=== PATIENT | female | born 1990 | race American Indian/Alaskan Native ===

== ENCOUNTER 2017-07-26 00:09 | Emergency (ER) | payer BC ==
[2017-07-26 02:52] VITALS: BP 150/88
[2017-07-26] MEDS ORDERED: XYLOCAINE 2% INFILTRATI ONE (03:23)
[2017-07-26] MEDS ORDERED: TENIVAC IM ONE (03:23)
[2017-07-26] MEDS ORDERED: XYLOCAINE 1% MPF 5 mL INFILTRATI ONE (03:24)
--- NOTE | 2017-07-26 03:27 | Emergency Department Report ---
ED Laceration HPI - HPI Chief Complaint: Wound/Laceration Stated Complaint: CUT TO THE HAND Time Seen by Provider: 07/26/17 02:57 Occurred When: Today Location: Upper Extremity (laceration to extensor surface right middle finger) Severity: moderate Tetanus Status: Unknown Laceration Symptoms: Yes Pain, No Foreign Body Sensation, No Numbness, No Weakness Other History: 27-year-old female presents here with complaints of laceration to right middle finger just prior to arrival. Patient was washing some dishes and sustained a laceration to the extensor surface of her right middle finger. From a broken glass plate. Laceration measured about 4 cm. ED Review of Systems ROS: Stated complaint: CUT TO THE HAND Other details as noted in HPI Comment: All other systems reviewed and negative Constitutional: denies: chills, diaphoresis, fever, malaise Eyes: denies: eye pain, eye discharge, vision change ENT: denies: throat pain, dental pain, hearing loss, epistaxis Respiratory: denies: cough, orthopnea, shortness of breath, SOB with exertion Cardiovascular: denies: chest pain, palpitations, dyspnea on exertion, edema, syncope, paroxysmal nocturnal dyspnea Endocrine: denies: no symptoms reported, excessive sweating, flushing, intolerance to cold, increased hunger, increased thirst, increased urine Gastrointestinal: denies: nausea, vomiting, diarrhea, constipation, hematemesis Genitourinary: denies: dysuria Musculoskeletal: other (laceration right middle finger) Skin: other (4 cm laceration on extensor surface right middle finger) Neurological: denies: headache, weakness, numbness, paresthesias ED Past Medical Hx - Past Medical History Previous Medical History?: No - Surgical History Past Surgical History?: No - Social History Smoking Status: Never Smoker - Medications Home Medications: Home Medications Medication Instructions Recorded Confirmed Last Taken Type Cephalexin [Keflex] 1,000 mg PO BID #40 capsule 07/26/17 Unknown Rx Ibuprofen [Motrin 800 MG tab] 800 mg PO Q8HR PRN #30 tablet 07/26/17 Unknown Rx Mupirocin [Bactroban 2%] 1 applic TP TID #1 tube 07/26/17 Unknown Rx traMADol [Ultram] 50 mg PO Q6HR PRN #20 tablet 07/26/17 Unknown Rx Laceration Physical Exam - Exam General: Vital signs noted. No distress. Alert and acting appropriately. Wound Length (cm): 4 Laceration Location: Other (extensor surface right middle finger) Laceration Exam: Yes Normal Distal CMS, No Foreign Body, No Exposed Tendon, Vessel, or Nerve, No Tendon Injury ED Course Vital Signs 07/26/17 07/26/17 07/26/17 00:28 00:37 02:51 Temperature 98.6 F 98.6 F 98.5 F Pulse Rate 81 84 70 Respiratory 16 16 18 Rate Blood Pressure 148/83 148/83 Blood Pressure 150/88 [Right] O2 Sat by Pulse 97 100 100 Oximetry - Laceration /Wound Repair Right Upper Dorsal Finger Wound Location: upper extremity (right middle finger extensor surface) Wound's Depth, Shape: irregular Wound Explored: no foreign body removed Betadine Prep?: Yes Volume Anesthetic (ccs): 10 (2% plain lidocaine) Wound Debrided: minimal Suture Size/Type: 3:0 Number of Sutures: 9 (Ethilon sutures) Layer Closure?: No Sterile Dressing Applied?: Yes Critical Care Time: No Critical care attestation.: If time is entered above; I have spent that time in minutes in the direct care of this critically ill patient, excluding procedure time. ED Disposition Clinical Impression: Laceration of right middle finger Disposition: DC-01 TO HOME OR SELFCARE Is pt being admited?: No Does the pt Need Aspirin: No Condition: Stable Instructions: Finger Laceration (ED), Suture Care (ED) Additional Instructions: Keep wound clean and dry always apply antibiotic ointment 3 times daily. Follow up with your primary care for wound evaluation. For removal of sutures in 12 days Prescriptions: Cephalexin [Keflex] 1,000 mg PO BID #40 capsule Ibuprofen [Motrin 800 MG tab] 800 mg PO Q8HR PRN #30 tablet PRN Reason: Pain Mupirocin [Bactroban 2%] 1 applic TP TID #1 tube traMADol [Ultram] 50 mg PO Q6HR PRN #20 tablet PRN Reason: Pain Referrals: PRIMARY CARE,MD [Primary Care Provider] - 3-5 Days Time of Disposition: 04:50
[2017-07-26] MEDS ORDERED: TRIPLE ANTIBIOTIC TP ONE (04:08)
[2017-07-26] MEDS ORDERED: ANCEF IM ONE (04:08)
== END 2017-07-26 05:10 | disposition home or self-care (01) ==
LOC: ED 00:09
DX: S61.212A Laceration without foreign body of right middle finger without damage to nail, initial encounter (principal); W26.8XXA Contact with other sharp object(s), not elsewhere classified, initial encounter; Y93.G1 Activity, food preparation and clean up; Y92.89 Other specified places as the place of occurrence of the external cause; Y99.8 Other external cause status
CPT/HCPCS: 12002; 90471; 90714; 96372; 99282; J0690; A6250